=== PATIENT | female | born 1980 | race Caucasian/White ===

== ENCOUNTER 2016-12-22 09:39 | Emergency (ER) | payer OTHER ==
--- NOTE | 2016-12-22 10:02 | ERPHSYRPT ---
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 ABLE TO UNDRESS HERSELF, HAS LIMITED MOVEMENT, NO BRUSING OR SWELLING NOTED Physician History: CC: right shoulder pain Hx: 36 y/o patient of Dr Otoole with hx of RA. She states was lifting using the right arm and felt pain in right shoulder. She works at [employer] but states this is not workman comp type injury. Pain last night. Worse to try to move shoulder. No N/T/W. No other complaints. She has voltaren and norco for pain at home and declines pain meds here. Occurred: other (last night) Severity of Pain-Max: moderate Severity of Pain-Current: moderate Extremities Pain Location: shoulder: right Allergies/Adverse Reactions: Penicillins Allergy (Mild, Verified 04/19/16 21:51) Rash clonazepam [From Klonopin] Allergy (Verified 04/19/16 21:51) Rash Influenza Virus Vaccines Allergy (Verified 12/22/16 09:52) Home Medications: Ergocalciferol (Vitamin D2) [Vitamin D] 50,000 unit PO .11/05 [History] Diclofenac Sodium [Voltaren] 75 mg DAILY 12/22/16 [History] Hydrocodone Bit/Acetaminophen [[place] 5-325 Tablet] 1 ea Q4HPRN PRN 12/22/16 [ History] Hx Tetanus, Diphtheria Vaccination/Date Given: Yes Hx Influenza Vaccination/Date Given: No Hx Pneumococcal Vaccination/Date Given: No Immunizations Up to Date: Yes - Review of Systems Constitutional: No Fever, No Chills Eyes: No Symptoms Ears, Nose, & Throat: No Symptoms Respiratory: No Cough, No Dyspnea Cardiac: No Chest Pain Abdominal/Gastrointestinal: No Abdominal Pain Musculoskeletal: Joint Pain (right shoulder), No Back Pain, No Neck Pain Neurological: No Focal Weakness, No Parasthesia - Past Medical History Pertinent Past Medical History: Yes Neurological History: Migraines ENT History: No Pertinent History Cardiac History: No Pertinent History Respiratory History: Asthma Endocrine Medical History: No Pertinent History Musculoskeletal History: No Pertinent History, Rheumatoid Arthritis GI Medical History: Colitis History: Other Psycho-Social History: Anxiety Female Reproductive Disorders: Other Other Medical History: ANEMIA. VITAMIN D DEFICIENCY - Past Surgical History Past Surgical History: Yes Neuro Surgical History: No Pertinent History Cardiac: No Pertinent History Respiratory: No Pertinent History Gastrointestinal: Cholecystectomy Genitourinary: No Pertinent History Musculoskeletal: No Pertinent History Female Surgical History: Hysterectomy Other Surgical History: c section x5. laprascopic fibroid removal x3 - Social History Smoking Status: Never smoker Exposure to second hand smoke: Yes (OCC) Drug Use: none Patient Lives Alone: No - Female History Hx Last Menstrual Period: HYSTER Hx Now: No - Nursing Vital Signs Nursing Vital Signs: Initial Vital Signs Temperature 98.0 F Temperature Source Oral Pulse Rate 97 Respiratory Rate 16 Blood Pressure [Left Arm] 117/70 Pain Intensity 3 - Physical Exam General Appearance: alert Eyes, Ears, Nose, Throat Exam: moist mucous membranes Neck Exam: normal inspection, non-tender, supple Cardiovascular/Respiratory Exam: normal breath sounds, regular rate/rhythm Neuro/Tendon Exam: normal sensation, normal motor functions Mental Status Exam: alert, oriented x 3, cooperative Skin Exam: warm, dry SpO2 Interpretation: normal SpO2: 97 Oxygen Delivery: Room Air Comments: right shoulder tender. Decreased ROM due to pain. No swelling, warmth, or redness. Pulse intact. No elbow or wrist tenderness. No neck tenderness. - Course Nursing assessment & vital signs reviewed: Yes - Radiology Exams right shoulder X-ray Interpretation: Discussed w/ radiologist, No Fracture (minimal AC degnerative arthropathy) Ordered Tests: Active Orders 24 hr Category Date Time Status Cold Application STAT Care 12/22/16 09:56 Active Sling Application STAT Care 12/22/16 09:56 Active SHOULDER Stat Exams 12/22/16 09:56 Completed - Progress Progress Note: 12/22/16 10:49 She will have work slip. She has appt this week with Dr Otoole. Shoulder sprain instr given. Counseled pt/family regarding: diagnosis, need for follow-up, rad results - Departure Time of Disposition: 10:50 Departure Disposition: Home Clinical Impression: Sprain of right shoulder Qualifiers: Encounter type: initial encounter Shoulder sprain type: rotator cuff capsule Qualified Code(s): S43.421A - Sprain of right rotator cuff capsule, initial encounter Condition: Stable Critical Care Time: No Referrals: CAROL OTOOLE MD [Primary Care Provider] - Instructions: Shoulder Sprain Additional Instructions: Sling for a few days- do limited range of motion exercises. Take your pain medication as already prescribed. See Dr Otoole this week for recheck. Ice packs off and on.
--- NOTE | 2016-12-22 10:27 | XRAY ---
Indication: Pain following lifting. Comparison: March 21, 2016 3 views of the right shoulder now demonstrates minimal AC degenerative arthropathy. No other bony, articular, or soft tissue abnormalities.
[2016-12-22 11:01] VITALS: BP 126/72; PULSE 78; O2SAT 98
== END 2016-12-22 11:00 | disposition home or self-care (01) ==
LOC: ED 09:39
DX: S43.421A Sprain of right rotator cuff capsule, initial encounter (principal); X50.0XXA Overexertion from strenuous movement or load, initial encounter; Y93.F2 Activity, caregiving, lifting; Y92.129 Unspecified place in nursing home as the place of occurrence of the external cause; Y99.0 Civilian activity done for income or pay
CPT/HCPCS: 73030; 99282

== ENCOUNTER 2017-05-23 23:45 | Emergency (ER) | payer OTHER ==
[2017-05-24] MEDS ORDERED: Zofran 4 MG/2 ML VIAL IV ONE (00:14)
[2017-05-24] MEDS ORDERED: Sodium Chloride 0.9% 1000 ML 1,000 ML IV STA (00:14)
[2017-05-24] MEDS ORDERED: MORPHINE SULFATE 4 MG INJ IV ONE ×2 (00:14→01:17)
--- NOTE | 2017-05-24 00:15 | ERPHSYRPT ---
- History of Present Illness Time Seen by Provider: 05/24/17 00:03 Historian: patient Exam Limitations: no limitations Patient Subjective Stated Complaint: pt has been having upper abd pain for 3 days no releif with motrin or zofran -having 8-10 diarrhea stools with "bile" and bloody no fever -pain is sharp and radiates to back -feels like before she had her gallbladder out for stones Triage Nursing Assessment: pt is awake and alert and able to answer questions Physician History: 37-year-old white female arrives with complaint of abdominal pain nausea and loose stool symptoms going on for 3 days. Patient has no fevers. She describes the pain is located in the upper epigastric in the upper bilateral abdomen. Patient states she is not getting relief with Motrin at home states she is not taking her [place] which is chronically prescribed to her for her pain. Past medical history includes migraines, asthma, rheumatoid arthritis, colitis, anxiety, anemia, vitamin D deficiency. Past surgical history includes cholecystectomy hysterectomy laparoscopic removed fibroids. , Multiple C-sections. Timing/Duration: day(s) (3 or 4 days) Activities at Onset: none Quality: cramping Abdominal Pain Onset Location: RUQ, LUQ, epigastric Pain Radiation: back Severity of Pain-Max: moderate Severity of Pain-Current: moderate Modifying Factors: Improves With: other (patient states she's been taking Motrin for her pain, patient hasreceived multiple prescriptions for hydrocodone last filled May 13, 2016 #60 tablets of 325/5 patient states she is not taking thi) Associated Symptoms: back, nausea, other (loose stools), No fever/chills, No fatigue, No headache, No heartburn, No loss of appetite, No neck pain, No rash, No shortness of breath, No syncope, No vomiting, No weakness Previous symptoms: no prior history Allergies/Adverse Reactions: Penicillins Allergy (Mild, Verified 05/24/17 00:06) Rash clonazepam [From Klonopin] Allergy (Verified 05/24/17 00:06) Rash Influenza Virus Vaccines Allergy (Verified 05/24/17 00:06) Home Medications: Ergocalciferol (Vitamin D2) [Vitamin D] 50,000 unit PO .11/05 [History] Diclofenac Sodium [Voltaren] 75 mg DAILY 12/22/16 [History] Hydrocodone Bit/Acetaminophen [[place] 5-325 Tablet] 1 ea Q4HPRN PRN 12/22/16 [ History] Hx Tetanus, Diphtheria Vaccination/Date Given: Yes Hx Influenza Vaccination/Date Given: No Hx Pneumococcal Vaccination/Date Given: No - Review of Systems Constitutional: No Fever, No Chills Eyes: No Symptoms Ears, Nose, & Throat: No Symptoms Respiratory: No Cough, No Dyspnea Cardiac: No Chest Pain, No Edema, No Syncope Abdominal/Gastrointestinal: Abdominal Pain, Nausea, Diarrhea, No Vomiting, No Constipation, No Hematemesis, No Hematochezia, No Melena, No Dysphagia, No Appetite Changes Genitourinary Symptoms: No Dysuria Musculoskeletal: No Back Pain, No Neck Pain Skin: No Rash Neurological: No Dizziness, No Focal Weakness, No Sensory Changes Psychological: No Symptoms Endocrine: No Symptoms All Other Systems: Reviewed and Negative - Past Medical History Pertinent Past Medical History: Yes Neurological History: Migraines ENT History: No Pertinent History Cardiac History: No Pertinent History Respiratory History: Asthma Endocrine Medical History: No Pertinent History Musculoskeletal History: No Pertinent History, Rheumatoid Arthritis GI Medical History: Colitis History: Other Psycho-Social History: Anxiety Female Reproductive Disorders: Other Other Medical History: ANEMIA. VITAMIN D DEFICIENCY - Past Surgical History Past Surgical History: Yes Neuro Surgical History: No Pertinent History Cardiac: No Pertinent History Respiratory: No Pertinent History Gastrointestinal: Cholecystectomy Genitourinary: No Pertinent History Musculoskeletal: No Pertinent History Female Surgical History: Hysterectomy Other Surgical History: c section x5. laprascopic fibroid removal x3 - Social History Smoking Status: Never smoker Exposure to second hand smoke: Yes (OCC) Drug Use: none Patient Lives Alone: No - Female History Hx Last Menstrual Period: na Hx Now: No - Nursing Vital Signs Nursing Vital Signs: Initial Vital Signs Temperature 98 F Temperature Source Oral Pulse Rate 68 Respiratory Rate 16 Blood Pressure [] 120/78 Pain Intensity 0 - Physical Exam General Appearance: no apparent distress, alert Eye Exam: PERRL/EOMI, eyes nml inspection Ears, Nose, Throat Exam: normal ENT inspection, pharynx normal, moist mucous membranes Neck Exam: normal inspection, non-tender, supple, full range of motion Respiratory Exam: normal breath sounds, lungs clear, No respiratory distress Cardiovascular Exam: regular rate/rhythm, normal heart sounds Gastrointestinal/Abdomen Exam: soft, normal bowel sounds, tenderness (abdomen tender in the epigastric rigght upper quadrant and left upper quadrant of the abdomen), No distention, No mass, No guarding, No ecchymosis, No pulsatile mass , No rebound, No hernia, No hepatomegaly, No organomegaly, No splenomegaly, No bruit Back Exam: normal inspection, normal range of motion, No CVA tenderness, No vertebral tenderness Extremity Exam: normal inspection, normal range of motion, pelvis stable Neurologic Exam: alert, oriented x 3, cooperative, normal mood/affect, nml cerebellar function, sensation nml, No motor deficits Skin Exam: normal color, warm, dry SpO2 Interpretation: normal (100%) SpO2: 100 Oxygen Delivery: Room Air - Course Nursing assessment & vital signs reviewed: Yes - Radiology Exams Abdomen X-ray Interpretation: Interpreted by me, Other (acute abdominal series: no free air, non obstructive abdomen, moderate amount of stool in right colon) Ordered Tests: Active Orders 24 hr Category Date Time Status Clean Catch Urine Specimen STAT Care 05/24/17 00:16 Active IV Insertion STAT Care 05/24/17 00:14 Active OBSTR/ACUTE ABDOMEN SERIES Stat Exams 05/24/17 00:44 Taken AMYLASE Stat Lab 05/24/17 00:15 Completed CBC W DIFF Stat Lab 05/24/17 00:15 Completed CMP Stat Lab 05/24/17 00:15 Completed LIPASE Stat Lab 05/24/17 00:15 Completed UA W/RFX UR CULTURE Stat Lab 05/24/17 00:10 Completed Medication Summary Discontinued Medications Generic Name Dose Route Start Last Admin Trade Name Alejadnro PRN Reason Stop Dose Admin Sodium Chloride 1,000 mls @ 999 mls/hr 05/24/17 00:14 05/24/17 00:26 Sodium Chloride 0.9% 1000 Ml IV 05/24/17 01:14 999 mls/hr .Q1H1M STA Administration Sodium Chloride Confirm 05/24/17 00:20 Sodium Chloride 0.9% 1000 Ml Administered 05/24/17 00:21 Dose 1,000 mls @ ud .ROUTE .STK-MED ONE Morphine Sulfate 4 mg 05/24/17 00:14 05/24/17 00:25 Morphine Sulfate 4 Mg Inj IV 05/24/17 00:15 4 mg STAT ONE Administration Morphine Sulfate Confirm 05/24/17 00:20 Morphine Sulfate 4 Mg Inj Administered 05/24/17 00:21 Dose 4 mg .ROUTE .STK-MED ONE Morphine Sulfate 4 mg 05/24/17 01:17 05/24/17 01:22 Morphine Sulfate 4 Mg Inj IV 05/24/17 01:18 4 mg STAT ONE Administration Morphine Sulfate Confirm 05/24/17 01:20 Morphine Sulfate 4 Mg Inj Administered 05/24/17 01:21 Dose 4 mg .ROUTE .STK-MED ONE Ondansetron HCl 4 mg 05/24/17 00:14 05/24/17 00:25 Zofran 4 Mg/2 Ml Vial IV 05/24/17 00:15 4 mg STAT ONE Administration Ondansetron HCl Confirm 05/24/17 00:20 Zofran 4 Mg/2 Ml Vial Administered 05/24/17 00:21 Dose 4 mg .ROUTE .STK-MED ONE Lab/Rad Data: Laboratory Result Diagrams 05/24/17 00:15 05/24/17 00:15 Laboratory Results 05/24/17 05/24/17 05/24/17 Range/Units 00:15 00:15 00:10 WBC 8.2 (4.0-10.5) K/mm3 RBC 4.75 (4.1-5.4) M/mm3 Hgb 12.8 (12.0-16.0) gm/dl Hct 40.4 (35-47) % MCV 85.1 (78-100) fl MCH 26.9 (26-32) pg MCHC 31.7 L (32-36) g/dl RDW 13.4 (11.5-14.0) % Plt Count 202 (150-450) K/mm3 MPV 12.9 H (6-9.5) fl Gran % 66.2 H (36.0-66.0) % Lymphocytes % 21.1 L (24.0-44.0) % Monocytes % 10.7 (0.0-12.0) % Eosinophils % 1.8 (0.00-5.0) % Basophils % 0.2 (0.0-0.4) % Basophils # 0.02 (0-0.4) Sodium 142 (136-145) mEq/L Potassium 3.5 (3.5-5.1) mEq/L Chloride 104 (98-107) mEq/L Carbon Dioxide 26.9 (21-32) mEq/L Anion Gap 14.8 (5-15) MEQ/L BUN 11 (9-20) mg/dL Creatinine 0.92 (0.55-1.30) mg/dl Estimated GFR > 60 ML/MIN Glucose 98 (70-110) MG/DL Calcium 9.2 (8.5-10.1) mg/dL Total Bilirubin 0.40 (0.2-1.0) mg/dL AST 25 (15-37) U/L ALT 52 (12-78) U/L Alkaline Phosphatase 52 (46-116) U/L Serum Total Protein 7.4 (6.4-8.2) gm/dL Albumin 3.8 (3.4-5.0) g/dL Amylase 47 (25-115) U/L Lipase 269 (73-393) U/L Ur Collection Type CLEAN CATCH Urine Color YELLOW (YELLOW) Urine Appearance SLIGHTLY CLOUDY (CLEAR) Urine pH 5.0 (5-6) Ur Specific [place] 1.025 (1.005-1.025) Urine Protein NEGATIVE (Negative) Urine Ketones SMALL (NEGATIVE) Urine Blood NEGATIVE (0-5) Huy/ul Urine Nitrite NEGATIVE (NEGATIVE) Urine Bilirubin NEGATIVE (NEGATIVE) Urine Urobilinogen NORMAL (0-1) mg/dL Ur Leukocyte Esterase NEGATIVE (NEGATIVE) Urine Glucose NEGATIVE (NEGATIVE) mg/dL Specimen Received 05/24/17:0005 - Progress Progress: improved Progress Note: 05/24/17 00:12 37-year-old white female with history of migraines, asthma, rheumatoid arthritis , colitis, anxiety, anemia, vitamin D deficiency who has had a cholecystectomy and a hysterectomy and multiple C-sections. Arrives with complaints of upper abdominal pain for 3-4 days nausea no vomiting positive loose stools. Patient states she has been taking Advil for this without relief she apparently hasn't prescription which appears to be chronic after reviewing inspect the patient had received [place] 5/325 number 60 tablets on May 13, 2017 she states she is not taking these because she doesn't like to. Patient does have a history of C. difficile in the past however she has not been on any antibiotics recently. On physical exam she is tender in the upper abdomen bowel sounds are positive there is no rebound physical examination otherwise within normal limits. Will go ahead and obtain CBC CMP amylase lipase UA give patient normal saline Zofran and morphine. 05/24/17 00:38 05/24/17 00:45 Patient is feeling somewhat better but not completely pain-free after morphine and IV fluids. Will go ahead and obtain acute abdominal series. Patient does state she's had some blood in her stools lately I've offered to go ahead and get a rectal done on this patient and check for occult blood however patient refuses this. Anticipate discharged with Phenergan and patient to continue [place] as prescribed by her family doctor if acute abdominal series is normal. Patient's labs are essentially normal. 05/24/17 01:05 05/24/17 01:10 acute abdomen series my read : no free air, nonobstructive bowel pattern, moderate amount of stool in the right colon. We'll plan discharge home with Phenergan, clear fluids, [place] as prescribed by Dr. Otoole. Patient will need to follow-up with Dr. Otoole. - Departure Time of Disposition: 00:50 Departure Disposition: Home Clinical Impression: Abdominal pain, History of rectal bleeding Abdominal pain Qualifiers: Abdominal location: upper abdomen, unspecified Qualified Code(s): R10.10 - Upper abdominal pain, unspecified Condition: Fair Critical Care Time: No Referrals: CAROL OTOOLE MD [Primary Care Provider] - Instructions: Abdominal Pain-Adult Additional Instructions: Return home. Plenty of fluids clear fluids only 24-48 hours if abdominal pain. Phenergan 25 mg one orally every 4-6 hours as needed for nausea or vomiting. [place] as prescribed by your family physician as needed for pain. Follow-up with your family physician, it is important that he follow-up with your family physician in view of the history of rectal bleeding you have provided need follow-up for this. . Return for acute distress or for severe symptoms. Your x-rays have been preliminarily read, they will be reread tomorrow. You will be notified if any discrepancies are noted. Prescriptions: Promethazine HCl 25 mg [Phenergan 25 mg] 25 mg PO Q4-6HPRN PRN #12 tablet PRN Reason: nausea and vomiting
[2017-05-24 00:20] LABS: ADD URINE CULTURE? NO (NO); Bilirubin NEGATIVE (NEGATIVE); Blood NEGATIVE Ery/ul (0-5); COMPLETE URINE MICROSCOPIC? NO; Collection Type CLEAN CATCH; Glucose NEGATIVE (NEGATIVE); Leukocyte Esterase NEGATIVE (NEGATIVE)
[2017-05-24] MEDS ORDERED: MORPHINE SULFATE 4 MG INJ ONE ×2 (00:20→01:20)
[2017-05-24] MEDS ORDERED: Zofran 4 MG/2 ML VIAL ONE (00:20)
[2017-05-24] MEDS ORDERED: Sodium Chloride 0.9% 1000 ML 1,000 ML ONE (00:20)
[2017-05-24 00:22] LABS: BASOPHIL % 0.2 % (0.0-0.4); Eosinophil % 1.8 % (0.00-5.0); Granulocytes % 66.2 % (36.0-66.0); Lymphocytes % 21.1 % (24.0-44.0); Mean Cell Volume 85.1 fl (78-100); Mean Corpuscular Hemoglobin 26.9 pg (26-32); Mean Platelet Volume 12.9 fl (6-9.5); Monocytes % 10.7 % (0.0-12.0); Platelet Count 202 K/mm3 (150-450); Red Blood Count 4.75 M/mm3 (4.1-5.4); Red Cell Distribution Width 13.4 % (11.5-14.0); White Blood Count 8.2 K/mm3 (4.0-10.5)
[2017-05-24 00:40] LABS: ALBUMIN 3.8 g/dL (3.4-5.0); ALKALINE PHOSPHATASE 52 U/L (46-116); ANION GAP 14.8 MEQ/L (5-15); BLOOD UREA NITROGEN 11 mg/dL (9-20); CHLORIDE 104 mEq/L (98-107); Carbon Dioxide 26.9 mEq/L (21-32); Glucose 98 MG/DL (70-110); LIPASE 269 U/L (73-393); Potassium 3.5 mEq/L (3.5-5.1); SGOT/AST 25 U/L (15-37); SGPT/ALT 52 U/L (12-78); SODIUM 142 mEq/L (136-145); Total Protein 7.4 gm/dL (6.4-8.2)
[2017-05-24 00:53] VITALS: PULSE 68
[2017-05-24 01:06] VITALS: O2SAT 100
[2017-05-24 02:03] VITALS: BP 108/78
--- NOTE | 2017-05-24 07:10 | XRAY ---
Indication: Right upper quadrant abdominal pain. Comparison: Chest exam April 19, 2016. 2 views of the abdomen demonstrates nonspecific nonobstructed bowel gas pattern. Previous cholecystectomy. Remaining solid organs and osseous structures unremarkable. Single frontal chest again demonstrates normal heart, lungs, and bony thorax with incidental right infrahilar calcified granuloma. Impression: Nonacute nonobstructed abdomen. Stable normal one view chest.
== END 2017-05-24 01:45 | disposition home or self-care (01) ==
LOC: ED 23:45
DX: R10.10 Upper abdominal pain, unspecified (principal)
CPT/HCPCS: 36000; 36415; 74022; 80053; 81002; 82150; 83690; 85025; 96360; 96374; 96375; 96376; 99284; J2270; J2405

== ENCOUNTER 2023-03-20 18:47 | Emergency (ER) | payer OTHER ==
--- NOTE | 2023-03-20 19:10 | ERPHSYRPT ---
- History of Present Illness Time Seen by Provider: 03/20/23 19:10 Historian: patient Exam Limitations: no limitations Patient Subjective Stated Complaint: Pt states "I have had chest pain on and off all day but i have pressure now and thought I should get checked out." Triage Nursing Assessment: Pt presented alert and oriented X 3, skin pwd. Pt ambulates with an upright steady gait, able to speak in clear full sentences pt in no apparent respiratory distress. Physician History: Pt c/o chest pain; a few episodes during last few weeks. Pain located on center. + radiation. Described as pressure. Lasts for a few minutes. Both at rest and on exertion. Endorses SOB, palpitations and emotional stressors. Denies heartburn. Timing/Duration: today Activities at Onset: rest Quality: pressure Location: substernal Chest Pain Radiation: back Severity of Pain-Max: severe Severity of Pain-Current: severe Modifying Factors: Improves With: nitroglycerin. Worsens With: exertion, movement, palpation Associated Symptoms: palpitations, No nausea, No vomiting, No shortness of breath, No diaphoresis, No fever Prior Chest Pain/Cardiac Workup: stress test Nitro Today/Relief: 0.4 mg x 1, provided by ED Aspirin Treatment Today: 81 mg x 4, provided by ED Allergies/Adverse Reactions: Penicillins Allergy (Mild, Verified 05/24/17 00:06) Rash clonazepam [From Klonopin] Allergy (Verified 05/24/17 00:06) Rash Influenza Virus Vaccines Allergy (Verified 05/24/17 00:06) Home Medications: Ergocalciferol (Vitamin D2) [Vitamin D] 50,000 unit PO UD 11/05/15 [History] Cyanocobalamin 1000 Mcg/ml [Cyanocobalamin B-12 1000 MCG/ML] 1,000 mcg IJ UD 03/20/23 [History] Famotidine [Pepcid] 20 mg PO DAILY 03/20/23 [History] Hx Tetanus, Diphtheria Vaccination/Date Given: Yes Hx Influenza Vaccination/Date Given: No Hx Pneumococcal Vaccination/Date Given: No Immunizations Up to Date: Yes Travel Risk - International Travel Have you traveled outside of the country in past 3 weeks: No - Coronavirus Screening Are you exhibiting any of the following symptoms?: No Close contact with a COVID-19 positive Pt in past 14-21 Days: No - Vaccine Status Have you recieved a Covid-19 vaccination: Yes Eggs Inspector: Pfizer - Vaccination Dates Date of 2cond Vaccination (if applicable): 2020 - Review of Systems Constitutional: No Symptoms Eyes: No Symptoms Ears, Nose, & Throat: No Symptoms Respiratory: No Symptoms Cardiac: Chest Pain, Palpitations, No Orthopnea, No PND Abdominal/Gastrointestinal: No Symptoms Genitourinary Symptoms: No Symptoms Musculoskeletal: No Symptoms Skin: No Symptoms Neurological: No Symptoms Psychological: No Symptoms Endocrine: No Symptoms Hematologic/Lymphatic: No Symptoms Immunological/Allergic: No Symptoms All Other Systems: Reviewed and Negative - Past Medical History Pertinent Past Medical History: Yes Neurological History: Migraines ENT History: No Pertinent History Cardiac History: No Pertinent History Respiratory History: Asthma Endocrine Medical History: No Pertinent History Musculoskeletal History: No Pertinent History, Rheumatoid Arthritis GI Medical History: Colitis History: Other Psycho-Social History: Anxiety Female Reproductive Disorders: Other Other Medical History: ANEMIA. VITAMIN D DEFICIENCY. diabetes II - Past Surgical History Past Surgical History: Yes Neuro Surgical History: No Pertinent History Cardiac: No Pertinent History Respiratory: No Pertinent History Gastrointestinal: Cholecystectomy Genitourinary: No Pertinent History Musculoskeletal: No Pertinent History Female Surgical History: Hysterectomy Other Surgical History: c section x5. laprascopic fibroid removal x3 - Social History Smoking Status: Never smoker Exposure to second hand smoke: Yes (OCC) Drug Use: none Patient Lives Alone: No - Female History Hx Last Menstrual Period: hysterectomy Hx Now: No - Nursing Vital Signs Nursing Vital Signs: Initial Vital Signs Temperature 97.9 F 03/20/23 18:48 Pulse Rate 98 H 03/20/23 18:48 Respiratory Rate 20 03/20/23 18:48 Blood Pressure 148/97 03/20/23 18:48 O2 Sat by Pulse Oximetry 100 03/20/23 18:48 Pain Scale Pain Intensity 0 - Physical Exam General Appearance: mild distress, obese Eye Exam: PERRL/EOMI, eyes nml inspection Ears, Nose, Throat Exam: normal ENT inspection Neck Exam: normal inspection, non-tender Respiratory Exam: normal breath sounds, chest tenderness, lungs clear, airway intact, No respiratory distress Cardiovascular Exam: regular rate/rhythm, normal heart sounds, capillary refill <2 sec, No edema Gastrointestinal/Abdomen Exam: soft, normal bowel sounds, No tenderness, No distention, No guarding, No rebound Back Exam: normal inspection, normal range of motion, No CVA tenderness, No vertebral tenderness Extremity Exam: normal inspection, normal range of motion, No calf tenderness, No swelling, No tenderness Neurologic Exam: alert, oriented x 3, cooperative Skin Exam: normal color, warm, dry SpO2 Interpretation: normal SpO2: 100 O2 Delivery: Room Air - Course Nursing assessment & vital signs reviewed: Yes - Radiology Exams Chest X-ray Interpretation: Interpreted by me, Negative Ordered Tests: Medication Summary Discontinued Medications Generic Name Dose Route Start Last Admin Trade Name Dionicioq PRN Reason Stop Dose Admin Aspirin 324 mg 03/20/23 19:11 03/20/23 19:31 Aspirin 81 Mg Tab.Chew PO 03/20/23 19:12 324 mg STAT ONE Administration Aspirin Confirm 03/20/23 19:29 Aspirin 81 Mg Tab.Chew Administered 03/20/23 19:30 Dose 324 mg .ROUTE .STK-MED ONE Sodium Chloride 1,000 mls @ 999 mls/hr 03/20/23 19:11 03/20/23 20:50 Sodium Chloride 0.9% 1000 Ml IV 03/20/23 20:11 Infused .Q1H1M STA Infusion Sodium Chloride Confirm 03/20/23 19:30 Sodium Chloride 0.9% 1000 Ml Administered 03/20/23 19:31 Dose 1,000 mls @ ud .ROUTE .STK-MED ONE Nitroglycerin 0.4 mg 03/20/23 19:11 03/20/23 19:37 Nitroglycerin 0.4 Mg (Ed) 0.4 Mg Tab.Subl SL 03/20/23 19:12 0.4 mg STAT ONE Administration Nitroglycerin Confirm 03/20/23 19:29 Nitroglycerin 0.4 Mg (Ed) 0.4 Mg Tab.Subl Administered 03/20/23 19:30 Dose 0.4 mg SL .STK-MED ONE Lab/Rad Data: Laboratory Result Diagrams 03/20/23 19:25 03/20/23 19:25 Laboratory Results 03/20/23 03/20/23 03/20/23 Range/Units 23:15 19:25 19:25 WBC (4.0-10.5) x10^3/uL RBC (4.1-5.4) x10^6/uL Hgb (12.0-16.0) g/dL Hct (35-47) % MCV (78-100) fL MCH (26-32) pg MCHC (32-36) g/dL RDW (11.5-14.0) % Plt Count (150-450) x10^3/uL MPV (7.5-11.0) fL Gran % (36.0-66.0) % Immature Gran % (Auto) (0.00-0.4) % Nucleat RBC Rel Count (0.00-0.1) % Eos # (Auto) (0-0.5) x10^3/uL Immature Gran # (Auto) (0.00-0.03) x10^3u/L Absolute Lymphs (auto) (1.0-4.6) x10^3/uL Absolute Monos (auto) (0.0-1.3) x10^3/uL Absolute Nucleated RBC (0.00-0.01) x10^3u/L Lymphocytes % (24.0-44.0) % Monocytes % (0.0-12.0) % Eosinophils % (0.00-5.0) % Basophils % (0.0-0.4) % Absolute Granulocytes (1.4-6.9) x10^3/uL Basophils # (0-0.4) x10^3/uL D-Dimer 0.30 (0.0-0.50) mg/L Sodium (137-145) mmol/L Potassium (3.5-5.1) mmol/L Chloride (98-107) mmol/L Carbon Dioxide (22-30) mmol/L Anion Gap (5-15) MEQ/L BUN (7-17) mg/dL Creatinine (0.52-1.04) mg/dL Estimated GFR ML/MIN Glucose (74-106) mg/dL Calcium (8.4-10.2) mg/dL Total Bilirubin (0.2-1.3) mg/dL AST (14-36) U/L ALT (0-35) U/L Alkaline Phosphatase (38-126) U/L Troponin I < 0.012 < 0.012 (0.000-0.034) ng/mL Serum Total Protein (6.3-8.2) g/dL Albumin (3.5-5.0) g/dL 03/20/23 03/20/23 Range/Units 19:25 19:25 WBC 11.8 H (4.0-10.5) x10^3/uL RBC 4.79 (4.1-5.4) x10^6/uL Hgb 12.7 (12.0-16.0) g/dL Hct 40.0 (35-47) % MCV 83.5 (78-100) fL MCH 26.5 (26-32) pg MCHC 31.8 L (32-36) g/dL RDW 13.4 (11.5-14.0) % Plt Count 232 (150-450) x10^3/uL MPV 11.6 H (7.5-11.0) fL Gran % 68.4 H (36.0-66.0) % Immature Gran % (Auto) 0.3 (0.00-0.4) % Nucleat RBC Rel Count 0.0 (0.00-0.1) % Eos # (Auto) 0.10 (0-0.5) x10^3/uL Immature Gran # (Auto) 0.04 H (0.00-0.03) x10^3u/L Absolute Lymphs (auto) 2.38 (1.0-4.6) x10^3/uL Absolute Monos (auto) 1.20 (0.0-1.3) x10^3/uL Absolute Nucleated RBC 0.00 (0.00-0.01) x10^3u/L Lymphocytes % 20.1 L (24.0-44.0) % Monocytes % 10.1 (0.0-12.0) % Eosinophils % 0.8 (0.00-5.0) % Basophils % 0.3 (0.0-0.4) % Absolute Granulocytes 8.07 H (1.4-6.9) x10^3/uL Basophils # 0.04 (0-0.4) x10^3/uL D-Dimer (0.0-0.50) mg/L Sodium 139 (137-145) mmol/L Potassium 4.2 (3.5-5.1) mmol/L Chloride 103 (98-107) mmol/L Carbon Dioxide 26 (22-30) mmol/L Anion Gap 14.3 (5-15) MEQ/L BUN 16 (7-17) mg/dL Creatinine 0.60 (0.52-1.04) mg/dL Estimated GFR > 60.0 ML/MIN Glucose 111 H (74-106) mg/dL Calcium 9.2 (8.4-10.2) mg/dL Total Bilirubin 0.50 (0.2-1.3) mg/dL AST 28 (14-36) U/L ALT 36 H (0-35) U/L Alkaline Phosphatase 61 (38-126) U/L Troponin I (0.000-0.034) ng/mL Serum Total Protein 7.9 (6.3-8.2) g/dL Albumin 4.2 (3.5-5.0) g/dL - Progress Progress: improved Air Movement: good Progress Note: Patient's chest pain significantly improved with nitro tablet. Chest x-ray was negative for cardiopulmonary findings. Lab evaluation largely unremarkable. Troponin negative x2. EKG within normal limits. Patient has a heart score of 3 due to 2 negative troponins and normal EKG decision was made to discharge home with close follow-up with primary care physician as well as scheduling appointment with maritime engineer for possible stress test. Blood Culture(s) Obtained: No Antibiotics given: No Counseled pt/family regarding: lab results, diagnosis, need for follow-up, rad results Medical Desision Making - Diagnostic Testing Diagnostic test were ordered, analyzed, and reviewed by me: Yes Radiological Interpretation: Interpreted by me - Risk of complications The pt has a mod risk of morbidity or mortality based on: Need for prescription drug management - Departure Departure Disposition: Home Clinical Impression: Angina at rest Condition: Good Critical Care Time: No Referrals: MARIAH VICKERS [Primary Care Provider] - Follow up/PCP as directed Instructions: Chest Pain (DC) Prescriptions: Nitroglycerin 0.4 mg Tablet [Nitrostat 0.4 MG Tablet] 0.4 mg SL Q5MIN PRN MR X 3 PRN #7 tablet PRN Reason: Chest Pain
[2023-03-20] MEDS ORDERED: BABY ASPIRIN 81 MG CHEW PO ONE (19:11)
[2023-03-20] MEDS ORDERED: Nitrostat 0.4 MG (ED) SL ONE ×2 (19:11→19:29)
[2023-03-20] MEDS ORDERED: Sodium Chloride 0.9% 1000 ML 1,000 ML IV STA (19:11)
[2023-03-20] MEDS ORDERED: BABY ASPIRIN 81 MG CHEW ONE (19:29)
[2023-03-20] MEDS ORDERED: Sodium Chloride 0.9% 1000 ML 1,000 ML ONE (19:30)
[2023-03-20 19:32] LABS: Absolute Neutrophil Ct (ANC) 8.07 x10^3/uL (1.4-6.9); BASOPHIL % 0.3 % (0.0-0.4); Basophil (Absolute #) 0.04 x10^3/uL (0-0.4); Eosinophil % 0.8 % (0.00-5.0); Hemoglobin 12.7 g/dL (12.0-16.0); IMMATURE GRAN # 0.04 x10^3u/L (0.00-0.03); IMMATURE GRAN % 0.3 % (0.00-0.4); Lymphocyte (Absolute #) 2.38 x10^3/uL (1.0-4.6); Lymphocytes % 20.1 % (24.0-44.0); Mean Cell Volume 83.5 fL (78-100); Mean Corpuscular Hemoglobin 26.5 pg (26-32); Mean Corpuscular Hgb Concent. 31.8 g/dL (32-36); Mean Platelet Volume 11.6 fL (7.5-11.0); Monocytes % 10.1 % (0.0-12.0); Neutrophil % 68.4 % (36.0-66.0); Platelet Count 232 x10^3/uL (150-450); Red Blood Count 4.79 x10^6/uL (4.1-5.4); Red Cell Distribution Width 13.4 % (11.5-14.0); White Blood Count 11.8 x10^3/uL (4.0-10.5)
[2023-03-20 19:46] LABS: ALBUMIN 4.2 g/dL (3.5-5.0); ALKALINE PHOSPHATASE 61 U/L (38-126); ANION GAP 14.3 MEQ/L (5-15); BLOOD UREA NITROGEN 16 mg/dL (7-17); CHLORIDE 103 mmol/L (98-107); Calcium 9.2 mg/dL (8.4-10.2); Carbon Dioxide 26 mmol/L (22-30); EST GLOMERULAR FILTRATION RATE > 60.0 ML/MIN; Glucose 111 mg/dL (74-106); Potassium 4.2 mmol/L (3.5-5.1); SGOT/AST 28 U/L (14-36); SGPT/ALT 36 U/L (0-35); SODIUM 139 mmol/L (137-145); Total Protein 7.9 g/dL (6.3-8.2)
--- NOTE | 2023-03-20 22:49 | XRAY ---
Indication: Chest pain. Comparison: April 19, 2016 PA/lateral chest again demonstrates normal heart and lungs. Bony thorax intact with mild degenerative changes. No new/acute findings.
[2023-03-20 23:12] VITALS: BP 137/97; PULSE 72
[2023-03-23 00:15] VITALS: O2SAT 100
== END 2023-03-20 23:12 | disposition home or self-care (01) ==
LOC: ED 18:47
DX: I20.9 Angina pectoris, unspecified (principal); R06.02 Shortness of breath; R00.2 Palpitations; E11.9 Type 2 diabetes mellitus without complications; Z79.899 Other long term (current) drug therapy
CPT/HCPCS: 36000; 36415; 71046; 80053; 84484; 85025; 85379; 93005; 93041; 94760; 96360; 99284; A9270-GY